=== PATIENT | female | born 1985 | race Caucasian/White ===

== ENCOUNTER 2019-09-13 09:01 | Emergency (ER) | payer SELFPAY ==
--- NOTE | 2019-09-13 09:58 | EDM.PDOC ---
ED HPI GENERAL MEDICAL PROBLEM - General Chief Complaint: Fever Stated Complaint: SORE THOAT Time Seen by Provider: 09/13/19 09:07 Source of Information: Reports: Patient History Limitations: Reports: No Limitations - History of Present Illness INITIAL COMMENTS - FREE TEXT/NARRATIVE: HISTORY AND PHYSICAL: History of present illness: 34-year-old female presents to ER if your private vehicle complaining of sore throat, dry cough, body aches and low-grade fevers for the past 7 days. She also reports occasional sharp burning chest pain when she coughs. Patient reports her cough worsens when attempting to take a deep breath in. Patient reports her temperature has been as high as 100.4 F over the past few days and has been taking OTC ibuprofen and Mucinex. She reports a history of childhood asthma. Patient reports that her children have been sick recently. Denies tobacco use or any other illicit drugs. Review of systems: As per history of present illness and below otherwise all systems reviewed and negative. Past medical history: As per history of present illness and as reviewed below otherwise noncontributory. Surgical history: As per history of present illness and as reviewed below otherwise noncontributory. Social history: No reported history of drug or alcohol abuse. Family history: As per history of present illness and as reviewed below otherwise noncontributory. Physical exam: HEENT: Atraumatic, normocephalic, pupils reactive, negative for conjunctival pallor or scleral icterus, mucous membranes moist, mild pharyngeal erythema, post-nasal drip, no tonsillar exudates, neck supple, nontender, trachea midline. Lungs: Clear to auscultation bilaterally. Heart: S1S2, regular. Abdomen: Soft, nondistended, nontender. normal bowel sounds. Pelvis: Deferred. Genitourinary: Deferred. Rectal: Deferred. Extremities: No lower extremity edema. Neuro: Awake, alert, oriented. Cranial nerves II through XII unremarkable. Exam nonfocal. Diagnostics: Rapid strep test, influenza swab Therapeutics: None Impression: 1. Atypical pneumonia. 2. Pleurisy Plan: 1. Script for doxycycline 100 mg BID x 5 days and albuterol inhaler prn provided. RTC over the counter ibuprofen for pleurisy. Follow-up with primary care provider if no improvement after antibiotic course. Patient also requests a script for Diflucan as she reports frequent yeast infections with antibiotics. Provided script for Diflucan 150 mg PO x 1 to use if yeast infection occurs. Definitive disposition and diagnosis as appropriate pending reevaluation and review of above. throat Pain Score (Numeric/FACES): 3 - Related Data Allergies Allergy/AdvReac Type Severity Reaction Status Date / Time No Known Allergies Allergy Verified 09/13/19 09:19 Home Meds: Home Meds Albuterol Sulfate [Albuterol Sulfate Hfa] 18 gm IH Q6HR PRN 30 Days #1 [email or web address] 09/13/19 [Rx] Doxycycline [Vibramycin] 100 mg PO BID 5 Days #10 tab 09/13/19 [Rx] Fluconazole [Diflucan] 150 mg PO ONETIME 1 Days #1 tab 09/13/19 [Rx] Past Medical History - Past Health History Medical/Surgical History: Denies Medical/Surgical History - Infectious Disease History Infectious Disease History: Reports: Chicken Pox Social & Family History - Family History Family Medical History: Noncontributory - Tobacco Use Smoking Status *Q: Never Smoker - Recreational Drug Use Recreational Drug Use: No ED ROS GENERAL - Review of Systems Review Of Systems: ROS reveals no pertinent complaints other than HPI. ED EXAM, GENERAL - Physical Exam Exam: See Below Course - Vital Signs Last Recorded V/S: Last Vital Signs Temp 97.8 F 09/13/19 09:20 Pulse 82 09/13/19 09:20 Resp 18 09/13/19 09:20 BP 101/50 L 09/13/19 09:20 Pulse Ox 99 09/13/19 09:20 - Orders/Labs/Meds Orders: Active Orders 24 hr Category Date Time Status CULTURE STREP A CONFIRMATION [] Stat Lab 09/13/19 09:30 Results STREP SCRN A RAPID W CULT CONF [] Stat Lab 09/13/19 09:30 Results Departure - Departure Time of Disposition: 10:19 Disposition: Home, Self-Care 01 Condition: Good Clinical Impression: Atypical pneumonia - Discharge Information *PRESCRIPTION DRUG MONITORING PROGRAM REVIEWED*: Not Applicable *COPY OF PRESCRIPTION DRUG MONITORING REPORT IN PATIENT [place]: Not Applicable Prescriptions: Albuterol Sulfate [Albuterol Sulfate Hfa] 18 gm IH Q6HR PRN 30 Days #1 [email or web address] PRN Reason: Shortness Of Breath Doxycycline [Vibramycin] 100 mg PO BID 5 Days #10 tab Fluconazole [Diflucan] 150 mg PO ONETIME 1 Days #1 tab Instructions: Community-Acquired Pneumonia, Adult, [id number] Referrals: PCP,None [Primary Care Provider] - Forms: ED Department Discharge Additional Instructions: The following information is given to patients seen in the emergency department who are being discharged to home. This information is to outline your options for follow-up care. We provide all patients seen in our emergency department with a follow-up referral. The need for follow-up, as well as the timing and circumstances, are variable depending upon the specifics of your emergency department visit. If you don't have a primary care physician on staff, we will provide you with a referral. We always advise you to contact your personal physician following an emergency department visit to inform them of the circumstance of the visit and for follow-up with them and/or the need for any referrals to a consulting specialist. The emergency department will also refer you to a specialist when appropriate. This referral assures that you have the opportunity for follow-up care with a specialist. All of these measure are taken in an effort to provide you with optimal care, which includes your follow-up. Under all circumstances we always encourage you to contact your private physician who remains a resource for coordinating your care. When calling for follow-up care, please make the office aware that this follow-up is from your recent emergency room visit. If for any reason you are refused follow-up, please contact the [facility] Emergency Department at and asked to speak to the emergency department charge nurse. - My Orders Last 24 Hours: My Active Orders 09/13/19 09:30 CULTURE STREP A CONFIRMATION [RM] Stat STREP SCRN A RAPID W CULT CONF [RM] Stat - Assessment/Plan Last 24 Hours: My Active Orders 09/13/19 09:30 CULTURE STREP A CONFIRMATION [RM] Stat STREP SCRN A RAPID W CULT CONF [] Stat
== END 2019-09-13 10:44 | disposition home or self-care (01) ==
LOC: MW.ED 09:01
DX: J18.9 Pneumonia, unspecified organism (principal); R09.1 Pleurisy; J45.909 Unspecified asthma, uncomplicated; Z79.899 Other long term (current) drug therapy
CPT/HCPCS: 87081; 87804; 87880-QW; 99283